=== PATIENT | male | born 2000 | race Caucasian/White ===

== ENCOUNTER 2022-01-05 19:11 | Emergency (ER) | payer OTHER, SELFPAY ==
[2022-01-05 19:25] VITALS: BP 133/85; PULSE 94; RESP 18; TEMP 36; O2SAT 100; BMI 21.5
[2022-01-05] MEDS: Ketorolac Tromethamine 60 MG/2 ML VIAL IM (21:17)
[2022-01-05] MEDS: Amoxicillin/Potassium Clav 875 MG TABLET PO (21:17)
--- NOTE | 2022-01-05 21:39 | ED_ITS ---
HPI - Ear Problem General Chief complaint: Ear Problems Stated complaint: L Earache Time Seen by Provider: 01/05/22 20:09 Source: patient Mode of arrival: ambulatory Limitations: no limitations History of Present Illness HPI Narrative: 21-year-old male with a history of ruptured TM with repair in 2011 here with left ear pain for 1 day. Had a recent cough and cold. No fevers or chills. No drainage or itching from the ear Related Data Previous Rx's Medication Instructions Recorded amoxicillin 875 mg-potassium 1 tab PO BID #14 tab 01/05/22 clavulanate 125 mg tablet ibuprofen 800 mg tablet 800 mg PO Q8H PRN #30 tab 01/05/22 Allergies Allergy/AdvReac Type Severity Reaction Status Date / Time No Known Allergies Allergy Verified 01/05/22 21:01 Review of Systems Review of Systems: Yes all other systems are reviewed and are negative Constitutional: Constitutional: Reports no additional constitutional complaints, Denies body ache(s), Denies chills, Denies fever(s), Denies headache(s) and Denies weakness Eyes: Eyes: Reports no additional eye complaints and Denies change in vision ENT: Reports system reviewed and no additional complaints, except as documented, Denies dizziness, Denies ear discharge, Reports otalgia, Denies headache(s), Denies nasal congestion, Denies nasal discharge and Denies neck pain Cardiovascular: Cardiovascular: Reports no additional cardiovascular complaints, Denies chest pain, Denies leg edema and Denies dyspnea Respiratory: Respiratory: Reports no additional respiratory complaints, Denies cough and Denies dyspnea Gastrointestinal: Gastrointestinal: Reports no additional gastrointestinal complaints, Denies abdominal pain, Denies diarrhea, Denies nausea and Denies vomiting Genitourinary: Genitourinary: Denies urinary incontinence Musculoskeletal: Musculoskeletal: Reports no additional musculoskeletal complaints, Denies back pain, Denies arthralgias, Denies joint swelling, Denies neck pain, Denies numbness and Denies tingling Integumentary/Breasts: Skin/Breast: Reports system reviewed and no additional complaints, except as docu and Denies rash Neurologic: Reports system reviewed and no additional complaints, except as documented, Denies Abnormal speech present, Denies dizziness, Denies headache(s), Denies numbness, Denies tingling and Denies weakness [facility] [place] Past Medical History Attestation statement: The following information was validated with the patient. Source: old records reviewed and nursing notes reviewed Social History Social History Advance Directives: No Advance Directives Information Provided: No Physical Exam Vital Signs: Vital Signs: Last Vital Signs Temp 96.8 F 01/05/22 19:25 Pulse 94 01/05/22 19:25 Resp 18 01/05/22 19:25 BP 133/85 01/05/22 19:25 Pulse Ox 100 01/05/22 19:25 BMI result Body Mass Index 21.5 Const: General: cooperative, healthy appearing, comfortable and no acute distress Orientation/consciousness: patient oriented x3 Limitations: no limitations HEENT: Head: Yes normal to inspection Ears: hearing grossly normal bilaterally, TM normal on the right, mastoids normal, no periauricular adenopathy, TM abnormal (L TM with erythema/bulging ) and unable to visualize TM on the left (cerumen impaction) General nose exam: Normal external nose present Face and sinus: Yes normal facial exam Mouth: Normal oral and palatal mucosa present Throat: Yes posterior oropharynx normal, Yes tonsils normal and Yes uvula midline Eyes: General: appearance normal, both eyes and all related structures Pupils: Equal, round and reactive pupils present Neck: Neck: Yes normal visual inspection, Yes full ROM and Yes no lymphadenopathy Chest: Chest palpation & inspection: normal inspection of the chest Resp: Effort & Inspection: normal respiratory effort Auscultation: clear to auscultation bilaterally Cardio: Rate: regular rate Rhythm: regular rhythm Peripheral pulses: Peripheral pulses 2+ throughout GI: Inspection: Yes normal to inspection Palpation (GI): Soft to palpation and nontender Auscultation: normal bowel sounds Back/Spine/Pelvis: Thoracic/Lumbar Spine: thoracic and lumbar spine normal to inspection Skin: General skin exam: no rashes or lesions noted Neuro: General: patient oriented x3, no focal motor deficits and normal sensation to monofilament Cranial nerves: Yes Equal, round and reactive pupils present Cognition (Neuro): normal cognition Speech: No Abnormal speech present Gait exam (Neuro): Normal gait present Motor exam (neuro): 5/5 motor strength present throughout Extrem: General: Yes normal to inspection Course Course Course Narrative: 21-year-old male here with left ear pain. On exam patient had a cerumen impaction. This was irrigated. After was irrigated there was some bulging and erythema to the left TM. Consistent with otitis media. No evidence of perforation. Will treat with course of antibiotics. Reviewed worrisome signs and symptoms of when to return to the emergency department. Comfortable discharge home. Procedures Procedure Narrative Procedure Narrative: Irrigation with water and hydrogen peroxide for cerumen impaction MDM - Ear Differential Diagnosis Differential diagnosis: Likely otitis media Medical Records Attestation: I reviewed the patient's medical records. Lab Data Attestation: I reviewed the patient's lab results. Discharge Plan Discharge Clinical Impression: Otitis media, Cerumen impaction Patient Disposition: Home, Self-Care Instructions: Ear Infection (ED) Prescriptions: New amoxicillin-pot clavulanate 875-125 mg tablet 1 tab PO BID Qty: 14 0RF ibuprofen 800 mg tablet 800 mg PO Q8H PRN (Reason: pain) Qty: 30 0RF Referrals: Physician,None [Primary Care Provider] - Interventions: ED Discharge Assessment Last Done: 01/05/22 21:36 Discharge Date/Time: 01/05/22 21:37
== END 2022-01-05 21:37 | disposition home or self-care (01) ==
LOC: HO.ED 21:33
PROVIDERS: Emergency Provider Emergency Medicine
DX: H66.92 Otitis media, unspecified, left ear (principal); H61.22 Impacted cerumen, left ear
CPT/HCPCS: 96372; 99283; 99284; J1885

== ENCOUNTER 2022-01-06 10:25 | Emergency (ER) | payer OTHER, SELFPAY ==
[2022-01-06 12:23] VITALS: BP 133/77; PULSE 80; RESP 18; TEMP 36.8; O2SAT 99; BMI 20.7
--- NOTE | 2022-01-06 14:31 | ED.EAR ---
HPI - Ear Problem General Chief complaint: Ear Problems Stated complaint: L ear pain/Hearing loss Time Seen by Provider: 01/06/22 14:24 Source: patient Mode of arrival: ambulatory Limitations: no limitations History of Present Illness MD Complaint: ear discharge and decreased hearing Location: left ear Duration: constant Severity: severe Relieving factors: nothing Exacerbating factors: nothing Context: other (Had cerumen impaction and had irrigated yesterday and after the procedure his tympanic membrane was intact although this morning when he woke up he was unable to hear and had some discharge on his pillow that was white) Discharge from ear: yes - bloody and yes - purulent Associated symptoms ear: decreased hearing Treatment prior to arrival: none Related Data Previous Rx's Medication Instructions Recorded amoxicillin 875 mg-potassium 1 tab PO BID #14 tab 01/05/22 clavulanate 125 mg tablet ibuprofen 800 mg tablet 800 mg PO Q8H PRN #30 tab 01/05/22 Allergies Allergy/AdvReac Type Severity Reaction Status Date / Time No Known Allergies Allergy Verified 01/06/22 12:23 Review of Systems Review of Systems: Constitutional : No Weight loss, No Fever, No Chills, No Night Sweats, No Fatigue, No Malaise ENT/Mouth : + Hearing loss, + left Ear Pain, No Nasal Congestion, No Sinus Pain, No Hoarseness, No sore throat, No Rhinorrhea, No Swallowing Difficulty Eyes: No Eye Pain, No Swelling, No Redness, No Foreign Body, No Discharge, No Vision Changes Cardiovascular : No Chest Pain, No SOB, No Dyspnea on Exertion, No Orthopnea, No Edema, No Palpitations Respiratory : No Cough, No Sputum, No Wheezing, No Smoke Exposure, No Dyspnea Gastrointestinal : No Nausea, No Vomiting, No Diarrhea, No Constipation, No abdominal Pain, No Hematochezia, No Melena Genitourinary : no irregular bleeding, No Dysuria, No Urinary Frequency, No Hematuria, No Urinary Incontinence, No Urgency, No Flank Pain, No Urinary Flow Changes, No Hesitancy Musculoskeletal : No joint pain, No Myalgias, No Joint Swelling Skin : No Skin Lesions, No rash Neuro : No Weakness, No Numbness, No Paresthesias, No Loss of Consciousness, No Dizziness, No Headache Psych : No Anxiety/Panic, No Depression, No SI/HI/AH/VH, No Social Issues, Heme/Lymph: No Bruising, No Bleeding,No Lymphadenopathy Endocrine : No Polyuria, No Polydipsia, No Temperature Intolerance Yes all other systems are reviewed and are negative PMFSH Past Medical History Attestation statement: The following information was validated with the patient. Social History Social History Advance Directives: No Advance Directives Information Provided: No Physical Exam Vital Signs: Vital Signs: Last Vital Signs Temp 98.3 F 01/06/22 12:23 Pulse 80 01/06/22 12:23 Resp 18 01/06/22 12:23 BP 133/77 01/06/22 12:23 Pulse Ox 99 01/06/22 12:23 BMI result Body Mass Index 20.7 vital signs have been reviewed as normal and appeared to be correct. Blood pressure normal. Heart rate normal. Respiration rate normal. Temperature normal. Oxygen saturation normal. Appearance: Alert. Oriented X3. No acute distress. Head: Normal external exam. Normocephalic. Atraumatic. Eyes: PERRLA. EOMI. Conjunctiva and sclera normal. Eyelids normal. ENT: EAC normal. Right tympanic membrane within normal limits. Left tympanic membrane unable to be visualized although patient has some bloody/white-colored discharge in the external ear canal most likely related to a tympanic membrane perforation. Otherwise no foreign bodies. Not consistent with mastoiditis. No hemotympanum noted. Pharynx normal. Uvula midline. Moist mucous membranes. No lesions/ulcerations or masses noted on the tongue. Normal voice. No trismus noted. No drooling noted. No muffled voice noted. Neck: Normal inspection. Neck supple. FROM. No adenopathy. Thyroid Normal. No meningeal signs. No neck mass noted. No signs of trauma noted. CVS: Normal heart rate and rhythm. Heart sound normal. Pulses normal throughout. No murmurs/rales/gallops. Respiratory: No respiratory distress. Painless inspiration. Breath sounds normal. No wheezes/rales/rhonchi noted. Chest nontender. No accessory muscle usage noted or decreased air movement noted. No signs of trauma. Back: Full range of motion noted. Nontender. Skin: Skin warm and dry. Normal skin color. Normal skin turgor. No rashes/lesions/lacerations noted. Extremities:Extremities exhibit normal range of motion and nontender. Neuro: Oriented X 3. No motor deficit. No sensory deficit. Reflexes normal. Normal steady gait. No focal neuro deficits noted. CN's II-XII intact bilaterally? Vascular: + radial pulses/+ 2 distal pedal pulses/+2 dorsalis pedis b/l. Normal cap refill. No cyanosis noted to upper extremity nails and lower extremity toes nails. Course Course Course Narrative: Patient with left tympanic membrane perforation. No foreign bodies noted. Patient is already on antibiotics. Will DC home with instructions to follow-up with Dr. Bill ear nose and throat doctor and to continue taking his previously prescribed medications as previously prescribed and to return if any new or worsening symptoms and follow up with PCP. Patient understands agrees with this plan. [facility] - Ear Medical Records Attestation: I reviewed the patient's medical records. Discharge Plan Discharge Clinical Impression: Acute otitis media of left ear with perforated tympanic membrane Patient Disposition: Home, Self-Care Instructions: Ruptured Eardrum (ED) Prescriptions: No Action amoxicillin-pot clavulanate 875-125 mg tablet 1 tab PO BID Qty: 14 0RF ibuprofen 800 mg tablet 800 mg PO Q8H PRN (Reason: pain) Qty: 30 0RF Referrals: [place] Bill [Physician] - 1 week Stand Alone Forms: Work/School Release
== END 2022-01-06 14:52 | disposition home or self-care (01) ==
PROVIDERS: Emergency Provider Emergency Medicine Emergency Medical Services
DX: H66.92 Otitis media, unspecified, left ear (principal); H72.92 Unspecified perforation of tympanic membrane, left ear; H92.02 Otalgia, left ear
CPT/HCPCS: 99283